=== PATIENT | male | born 1970 | race Caucasian/White ===

== ENCOUNTER 2021-10-07 07:51 | Emergency (ER) | payer OTHER, SELFPAY ==
--- NOTE | ~2021-10-07 | CT_ITS ---
EXAMINATION: CT HEAD WITHOUT CONTRAST CLINICAL INFORMATION: Unexplained ptosis right eye COMPARISON: None TECHNIQUE: Contiguous axial imaging was performed from the skull base to vertex without intravenous administration of contrast. This CT examination was performed using dose optimization techniques as appropriate, variously including the following: *Automated exposure control *Adjustment of mA and/or kV according to patient size (this includes techniques or standardized protocols for targeted exams where dose is matched to indication/reason for exam; i.e. extremities or head) *Use of iterative reconstruction technique DLP: 746 mGy-cm FINDINGS: There is no evidence of acute intracranial hemorrhage or territorial infarction. No abnormal mass effect or midline shift is seen. Figueredo to white matter differentiation is well preserved. No extra-axial fluid collections are identified. The ventricles are normal in size. There is no abnormal attenuation within the brain parenchyma. The osseous structures and soft tissues are normal. The mastoid air cells and visualized portions of the paranasal sinuses are well aerated. CT/CT head/brain wo con IMPRESSION: No acute intracranial process seen.
[2021-10-07 08:01] VITALS: BP 119/72; PULSE 77; RESP 16; TEMP 36.3; O2SAT 97; BMI 30.2
--- NOTE | 2021-10-07 09:07 | ED_ITS ---
HPI - Eye Problem General Chief complaint: Eye Problems Stated complaint: Trouble opening R eye Time Seen by Provider: 10/07/21 08:16 Source: patient Mode of arrival: ambulatory Limitations: no limitations History of Present Illness HPI Narrative: Patient presents emergency department for evaluation of drooping of the right upper eyelid. Onset was noted upon awakening this morning. Denies associated redness, swelling, pain or pressure to the eye, drainage from the eye, itchiness. Patient denies any recent viral symptoms/infections, known tick bites or possible exposure, recent rashes, headache, ear pain, vision changes, numbness or tingling to the face, dizziness or lightheadedness, numbness or tingling in the extremities, unsteady gait, chest pain, palpitations shortness of breath, difficulty breathing. Related Data Allergies Allergy/AdvReac Type Severity Reaction Status Date / Time No Known Allergies Allergy Verified 10/07/21 08:00 Review of Systems Review of Systems: Constitutional: No fever. No chills. No weakness. No fatigue. Eye: No swelling. No redness. No vision changes. No drainage. Positive ptosis ENT: No sore throat. No rhinorrhea. No nasal congestion. No sore throat. No difficulty swallowing. No ear pain Skin: No rash. No itching. Cardiovascular: No chest pain. No chest pressure. No palpitations. Respiratory: No shortness of breath. No cough. No sputum production. Gastrointestinal: No anorexia. No nausea. No vomiting. No diarrhea. No abdominal pain. Genitourinary: No burning micturition. No urinary frequency. Neurologic: No headache. No dizziness. No pre-syncope/ syncope. No unilateral weakness. No ataxia. No numbness. No tingling. No change in bowel or bladder control. Musculoskeletal: No muscle pain. No back pain. No joint pain. No stiffness. Hematologic: No bleeding. No bruising. Lymphatics: No enlarged lymph nodes. Psychiatric:No depression. No anxiety. Endocrine: No reports of sweating. No cold or heat intolerance. No polyuria. No polydipsia. Yes all other systems are reviewed and are negative [facility] Past Medical History Attestation statement: The following information was validated with the patient. Source: old records reviewed Medical History (Updated 10/07/21 @ 10:58 by Samra Ward CNP) Hypertension Social History Social History Advance Directives: No Advance Directives Information Provided: No Physical Exam Vital Signs: Vital Signs: Last Vital Signs Temp 97.4 F 10/07/21 08:01 Pulse 77 10/07/21 08:01 Resp 16 10/07/21 08:01 BP 119/72 10/07/21 08:01 Pulse Ox 97 10/07/21 08:01 O2 Del Method 10/07/21 08:01 BMI result Body Mass Index 30.2 Vital signs have been reviewed as normal and appeared to be correct. Blood pressure normal.? Heart rate normal.? Respiration rate normal. Temperature normal.? Oxygen saturation normal. Appearance: Alert.?Oriented to person, place and time. No acute distress.?No rmal affect. Head: Normocephalic, atraumatic. No head, sinus or TMJ tenderness.? Eyes: Sclera white, conjunctiva pink. PERRL, 3 mm bilaterally. Visual joya full to confrontation, EOMi.?No Nystagmus. No blepharitis. Positive Mechanical ptosis of right upper lid Ears: Bilateral ear canals clear, TM visible with good cone of light.? Nose: Nasal mucosa pink and moist with midline septum, nares patent bilaterally.? Mouth/ Throat: Oral mucosa pink and moist without lesions. Pharynx without ex udate, tonsils symmetric, no adenopathy.? Neck: Normal inspection.? Neck supple.?? CVS: Heart sounds normal. Normal heart rate and rhythm.? Pulses normal.?? Respiratory: No respiratory distress.? Lung sounds clear to auscultation bilaterally?? Abdomen: Soft and non-tender. Normoactive bowel sounds. No pulsatile mass.?? Skin: Skin warm and dry.? Normal skin color.? Normal skin turgor.?? Extremities: No lower extremity edema.? No calf ttp? Neuro: Moves all extremities spontaneously. Sensation intact bilaterally. Facial symmetry. CN II-XII intact. No focal neuro deficits. Ambulates with normal steady gait. NIH Stroke Scale Time: 08:30 Level of Consciousness: Alert Level of Consciousness Questions: Answers both questions correctly Level of Consciousness Commands: Performs both tasks correctly Best Gaze: Normal Visual: No visual loss Facial Palsy: Normal Motor Arm (Right): No drift Motor Arm (Left): No drift Motor Leg (Right): No drift Motor Leg (Left): No drift Limb Ataxia: Absent Sensory: Normal Best Language: No aphasia Dysarthia: Normal Extinction and Inattention: No abnormality Score: 0 Course Course Course Narrative: Patient is a 51-year-old male with past medical history of hypertension and hypertriglyceridemia presenting to emergency department for evaluation ptosis of the right upper eyelid with onset this morning. Patient without any additional symptoms or concerns, no neurological deficits. No sign inflammation, infection, tumor to the eyelid. Cranial nerves are intact. Extraocular movements are intact. Will obtain CT of the head to exclude intracranial pathology as a cause for unexplained ptosis. Reevaluation(s) Reevaluation #1: CT of the head reveals no acute intracranial processes, no intracranial hemorrhage, infarction, or masses. Discussed with patient, cannot exclude myasthenia gravis, however patient has no fatigue, diplopia, or ocular motor deficit, testing for myasthenia gravis would be to have antibody studies and nerve studies. Discussed possible aponeurotic ptosis, for which he should schedule an appointment with mobile sales assistant Advised to follow up with primary care persistent symptoms. Discussed reasons to return back to the emergency department. All questions were answered he was discharged home in stable condition. Reviewed with care with Dr. Foss, who agrees with plan of care. Time: 10:56 Discharge Plan Discharge Clinical Impression: Ptosis of right upper eyelid Patient Disposition: Home, Self-Care Instructions: Ptosis (ED) Additional Instructions: The CT of your head was normal. As we discussed, the exact cause of your eyelid drooping is unknown at this time, we discussed possible causes such as myasthenia gravis or aponeurotic p tosis. Please contact your primary care provider to schedule a follow-up visit within 1 week, in addition please contact Ophthalmology schedule follow-up visit within 1 week. You may return to the emergency department any new or worsening symptoms or concerns. Referrals: Abraham Baer [Physician] - 1 week (ptosis) Navin Ortiz MD [Primary Care Provider] - 1 week Interventions: ED Discharge Assessment Last Done: 10/07/21 11:16 Discharge Date/Time: 10/07/21 11:19
== END 2021-10-07 11:19 | disposition home or self-care (01) ==
PROVIDERS: Emergency Provider Emergency Medicine; PCP Internal Medicine
DX: H02.401 Unspecified ptosis of right eyelid (principal); I10 Essential (primary) hypertension
CPT/HCPCS: 70450; 99283; 99284